=== PATIENT | male | born 1965 | race Caucasian/White ===

== ENCOUNTER 2023-08-31 00:03 | Observation (INO) | payer OTHER ==
[2023-08-31] MEDS ORDERED: Morphine 4 MG/ML VIAL ONE (01:13)
[2023-08-31] MEDS ORDERED: Ondansetron PF 4 MG/2 ML Vial ONE ×2 (01:14→09:39)
[2023-08-31 01:36] LABS: #Basophils 0.04 10x3/uL (0.0-0.2); #Eosinphils Less than 0.03 10x3/uL (0.0-0.7); %Basophils 0.3 % (0.0-1.0); %Eosinophils 0.2 % (0.0-10.0); %Lymphocytes 13.9 % (21.0-51.0); %Monocytes 4.6 % (0.0-10.0); %Neutrophils 80.4 % (42.0-75.0); Hematocrit 43.9 % (42.0-52.0); Hemoglobin 14.6 g/dL (14.0-18.0); Mean Corpuscular HGB CONC 33.3 g/dL (32.0-36.0); Mean Corpuscular Hemoglobin 28.1 pg (27.0-31.0); Mean Corpuscular Volume 84.6 fL (78.0-98.0); Platelet Count 281 10x3/uL (130-400); RBC Distribution Width 13.5 % (11.5-14.5); Red Blood Cell (RBC) Count 5.19 mill/uL (4.70-6.10)
[2023-08-31 01:54] LABS: ALT (SGPT) 33 U/L (8-55); AST (SGOT) 21 U/L (5-34); Albumin 4.2 g/dL (3.5-5.0); Alkaline Phosphatase 53 U/L (40-110); Anion Gap 16 mmol/L (10-20); BUN (Urea Nitrogen) 26 mg/dL (8.4-25.7); Bilirubin, Total 0.4 mg/dL (0.2-1.2); Calc. Creatinine Clearance 0 mL/min (70-130); Calcium 9.8 mg/dL (7.8-10.44); Carbon Dioxide 23 mmol/L (22-29); Chloride 105 mmol/L (98-107); Estimated GFR 55; Globulin 3.4 g/dL (2.4-3.5); Glucose 182 mg/dL (70-105); Lipase 39 U/L (8-78); Potassium 4.4 mmol/L (3.5-5.1); Protein, Total 7.6 g/dL (6.0-8.3); Sodium 140 mmol/L (136-145)
[2023-08-31 01:57] LABS: Troponin I Less than 0.010 ng/mL (< 0.028)
[2023-08-31] MEDS ORDERED: HYDROmorphone 0.5 MG/0.5 ML SYRINGE ONE ×2 (02:23→05:43)
[2023-08-31 03:36] LABS: Bacteria/HPF None Seen HPF (None Seen); Bilirubin Negative (Negative); Blood, Urine Negative (Negative); CAUTI Indications for Culture Pelvic or flank pain; Clarity Clear (Clear); Glucose, Urine (Dipstick) 100 mg/dL (Negative); Ketone, Urine 20 mg/dL (Negative); Leukocyte Negative Leu/uL (Negative); Nitrite Negative (Negative); Protein, Urine (Dipstick) Negative (Neg-Trace); RBC/HPF None Seen HPF (0-3); Specific Gravity, Urine 1.023 (1.002-1.036); Squamous Epithelial None Seen HPF (0-3); Urobilinogen Normal mg/dL (Less than 2); WBC/HPF 0-3 HPF (0-3)
[2023-08-31 03:38] LABS: Urine Culture Reflex No No
[2023-08-31] MEDS ORDERED: Piperacillin/Tazobactam 4.5 GM VIAL ONE (05:43)
[2023-08-31] MEDS ORDERED: Sodium Chloride 0.9% 100 ML ONE (05:44)
[2023-08-31] MEDS ORDERED: Glucagon 1 MG/ML KIT IM PRN (06:54)
[2023-08-31] MEDS ORDERED: Dextrose 5% in Water 1,000 ML IV PRN (06:54)
[2023-08-31] MEDS ORDERED: Morphine 4 MG/ML VIAL SLOW IVP PRN (06:54)
[2023-08-31] MEDS ORDERED: Promethazine HCl 25 MG/ML VIAL IM PRN (06:54)
[2023-08-31] MEDS ORDERED: Ondansetron PF 4 MG/2 ML Vial IVP PRN (06:54)
[2023-08-31] MEDS ORDERED: Dextrose 50% Abboject 50 ML SYRINGE SLOW IVP PRN (06:54)
[2023-08-31] MEDS ORDERED: traMADol HCl 50 MG TAB PO PRN (06:56)
[2023-08-31 09:05] VITALS: BMI 26.6
[2023-08-31] MEDS ORDERED: Rocuronium Bromide 10 MG/ML (10ML VIAL) ONE (09:39)
[2023-08-31] MEDS ORDERED: fentaNYL PF 100 MCG/2 ML SYRINGE ONE (09:39)
[2023-08-31] MEDS ORDERED: Dexamethasone 4 mg/ml Vial ONE (09:39)
[2023-08-31] MEDS ORDERED: Lidocaine 2% PF 5 ML VIAL ONE (09:39)
[2023-08-31] MEDS ORDERED: PROPOFOL 20 ML ONE (09:40)
[2023-08-31] MEDS ORDERED: EPINEPHrine 1 MG/ML VIAL ONE (10:08)
[2023-08-31] MEDS ORDERED: Bupivacaine PF 0.5% 30 ML VIAL ONE (10:08)
[2023-08-31] MEDS ORDERED: HYDROmorphone 2 MG/ML VIAL ONE (10:14)
[2023-08-31] MEDS ORDERED: PHENYLEPHRINE-NS 100 MCG/ML 10 ML SYRINGE ONE (10:15)
[2023-08-31] MEDS ORDERED: Midazolam HCl 2 mg/2 ml Vial ONE (10:33)
[2023-08-31] MEDS ORDERED: Iopamidol-370 76% 500 ML MDV (1 ML CHARGE) ONE (10:55)
[2023-08-31] MEDS ORDERED: SUGAMMADEX SODIUM 200 MG/2 ML VIAL ONE (11:17)
[2023-08-31] MEDS ORDERED: Meperidine HCl/PF 25 MG (1 mL) VIAL ONE (11:46)
[2023-08-31] MEDS: Acetaminophen 325 MG TAB PO SCH (12:47)
[2023-08-31] MEDS: Famotidine 20 MG TAB PO SCH (12:47)
[2023-08-31] MEDS: Ibuprofen 200 MG TAB PO SCH (12:47)
[2023-08-31] MEDS: traMADol HCl 50 MG TAB PO SCH (12:48)
[2023-08-31] MEDS: Piperacillin/Tazobactam 3.375 GM in Sodium Chloride 0.9% 100 ML IVPB SCH ×2 (13:19→13:22)
[2023-08-31] MEDS: Sodium Chloride 0.9% 1,000 ML IV SCH (21:46)
[2023-08-31] MEDS: Senokot S 8.6-50 MG TAB PO SCH (21:46)
[2023-09-01 06:51] LABS: #Basophils Less than 0.03 10x3/uL (0.0-0.2); #Eosinphils Less than 0.03 10x3/uL (0.0-0.7); %Basophils 0.1 % (0.0-1.0); %Lymphocytes 10.2 % (21.0-51.0); %Monocytes 8.1 % (0.0-10.0); Hematocrit 41.2 % (42.0-52.0); Hemoglobin 13.8 g/dL (14.0-18.0); Mean Corpuscular HGB CONC 33.5 g/dL (32.0-36.0); Mean Corpuscular Hemoglobin 28.5 pg (27.0-31.0); Mean Corpuscular Volume 84.9 fL (78.0-98.0); Mean Platelet Volume 9.6 fL (7.4-10.4); Platelet Count 233 10x3/uL (130-400); RBC Distribution Width 13.9 % (11.5-14.5); Red Blood Cell (RBC) Count 4.85 mill/uL (4.70-6.10)
[2023-09-01 07:14] LABS: ALT (SGPT) 44 U/L (8-55); AST (SGOT) 29 U/L (5-34); Albumin 3.5 g/dL (3.5-5.0); Alkaline Phosphatase 47 U/L (40-110); Anion Gap 12 mmol/L (10-20); BUN (Urea Nitrogen) 18 mg/dL (8.4-25.7); Bilirubin, Total 0.9 mg/dL (0.2-1.2); Calc. Creatinine Clearance 92 mL/min (70-130); Calcium 9.1 mg/dL (7.8-10.44); Carbon Dioxide 25 mmol/L (22-29); Chloride 107 mmol/L (98-107); Estimated GFR 86; Glucose 123 mg/dL (70-105); Potassium 3.9 mmol/L (3.5-5.1); Protein, Total 6.5 g/dL (6.0-8.3); Sodium 140 mmol/L (136-145)
[2023-09-01 11:36] VITALS: BP 126/68; TEMP 98.4
[2023-09-01] MEDS: TETANUS, DIPHTHERIA TOX,ADULT (TDVAX) 0.5 ML VIAL IM ONE (14:19)
== END 2023-09-01 14:40 | disposition home or self-care (01) ==
LOC: ERS 00:03 → SURG B 08:37
PROVIDERS: ADMIT Student in an Organized Health Care Education/Training Program; ATTEND Student in an Organized Health Care Education/Training Program
PROC: 0FT44ZZ Resection of Gallbladder, Percutaneous Endoscopic Approach (ICD-10-PCS; principal; 2023-08-31)
DX: K80.12 Calculus of gallbladder with acute and chronic cholecystitis without obstruction (principal); N17.9 Acute kidney failure, unspecified
CPT/HCPCS: 36415; 71045; 74177; 76705; 80053; 81001; 83605; 83690; 84484; 85025; 88304; 93005; 96361; 96365; 96375; 96376; C1713; G0378; J0171; J0665; J1100; J1170; J2001; J2175; J2250; J2270; J2405; J2543; J2704; J3490; Q9967